=== PATIENT | female | born 1960 | race African-American/Black ===

== ENCOUNTER 2023-12-02 14:23 | Emergency (ER) | payer MEDICARE ==
[~2023-12-02] VITALS: Ht 162.6 cm; Wt 74.8 kg
[2023-12-02 14:51] VITALS: PULSE 79; RESP 17; TEMP 98.4; O2SAT 100
[2023-12-02] MEDS: KETOROLAC TROMETHAMINE 60 MG/2 ML VIAL IM ONE (15:40)
[2023-12-02] MEDS ORDERED: FAMOTIDINE20 MG PO (17:24)
[2023-12-02] MEDS ORDERED: CYCLOBENZAPRINE10 MG PO (17:24)
== END 2023-12-02 17:43 | disposition home or self-care (01) ==
LOC: ER 14:30
DX: M25.552 Pain in left hip (principal); M25.571 Pain in right ankle and joints of right foot; M19.90 Unspecified osteoarthritis, unspecified site; M25.512 Pain in left shoulder; W01.0XXA Fall on same level from slipping, tripping and stumbling without subsequent striking against object, initial encounter
CPT/HCPCS: 73030; 73502; 73610; 99283; J1885